=== PATIENT | male | born 1995 | race Caucasian/White ===

== ENCOUNTER 2017-08-07 10:39 | Emergency (ER) | payer SELFPAY ==
[2017-08-07 11:35] VITALS: BP 135/75
--- NOTE | 2017-08-07 11:39 | UC ---
Hand/Wrist HPI - HPI Summary HPI Summary: 21 y/o WM presents with left hand pain s/p injury about 1 hour ago while at work. He tells me that a box pallet was blown by the wind and landed on his left hand. He is having pain at the middle MCP. Has not taken anything for pain. Denies numbness, tingling, or decreased ROM. - History Of Current Complaint Chief Complaint: UCUpperExtremity Stated Complaint: FINGER/HAND INJURY WC Time Seen by Provider: 08/07/17 11:29 Hx Obtained From: Patient Mechanism Of Injury: Blunt Onset/Duration: Sudden Onset Severity Initially: Moderate Severity Currently: Moderate Pain Intensity: 7 Pain Scale Used: 0-10 Numeric Character Of Pain: Dull, Aching, Stiffness - Allergies/Home Medications Allergies/Adverse Reactions: Allergies Allergy/AdvReac Type Severity Reaction Status Date / Time No Known Allergies Allergy Verified 08/07/17 11:32 Home Medications: Home Medications NK [No Home Medications Reported] 08/07/17 [History Confirmed 08/07/17] PMH/Surg Hx/FS Hx/Imm Hx Previously Healthy: Yes - Surgical History Surgical History: None - Family History Known Family History: Positive: Cardiac Disease, Hypertension - Social History Occupation: Employed Full-time Lives: With Family Alcohol Use: Occasionally Substance Use Type: None Smoking Status (MU): Never Smoked Tobacco Review of Systems Constitutional: Negative Respiratory: Negative Cardiovascular: Negative Neurovascular: Negative Musculoskeletal: Edema - Left middle finger, Other: - Pain left middle finger Neurological: Negative All Other Systems Reviewed And Are Negative: Yes Physical Exam Triage Information Reviewed: Yes Appearance: Well-Appearing, No Pain Distress, Well-Nourished Vital Signs: Initial Vital Signs Temp 98.1 F 08/07/17 11:33 Pulse 57 08/07/17 11:33 Resp 16 08/07/17 11:33 BP 135/75 08/07/17 11:33 Pulse Ox 100 08/07/17 11:33 Vital Signs Reviewed: Yes Respiratory: Positive: Chest non-tender, Lungs clear, Normal breath sounds Cardiovascular: Positive: RRR, No Murmur, Pulses Normal - Left radial and ulnar , Brisk Capillary Refill - Left hand and all fingers Musculoskeletal: Positive: Strength Intact - Left hand and all fingers, ROM Intact - Left hand and all fingers, Edema @ - Mild overlying the left middle MCP , Other: - TTP over middle MCP. No obvious bony deformities. Neurological: Positive: Alert, Other: - Sensations intact left hand and all fingers. Psychological: Positive: Age Appropriate Behavior Hand/Wrist Course/Dx - Course Course Of Treatment: XR: IMPRESSION: NO ACUTE OSSEOUS INJURY. IF SYMPTOMS PERSIST, RECOMMEND REPEAT IMAGING. Hand was RUTH wrapped. Ibuprofen as needed for pain. F/u with ortho if needed. - Differential Dx/Diagnosis Differential Diagnosis/HQI/PQRI: Contusion, Dislocation, Fracture, Sprain, Strain Provider Diagnoses: Left hand contusion Discharge - Discharge Plan Condition: Stable Disposition: HOME Patient Education Materials: Contusion in Adults (ED) Forms: *Work Release Referrals: Sofya Ayers MD [Primary Care Provider] - Kinza Mcclelland MD [Medical Doctor] - If Needed Additional Instructions: If you develop a fever, shortness of breath, chest pain, new or worsening symptoms - please call your PCP or go to the ED. 1) Please keep your hand RUTH wrapped as much as possible, especially if working. 2) May take ibuprofen 600mg every 6-8 hours as needed for pain 3) If symptoms worsen or persist beyond 5 days, please call Orthopedics at the number below for a follow up appointment.
--- NOTE | 2017-08-07 11:54 | RAD ---
HISTORY: Left hand pain, crush injury COMPARISONS: None VIEWS: 4, Frontal, lateral, and oblique views of the left hand FINDINGS: BONE DENSITY: Normal. BONES: There is no displaced fracture. JOINTS: There is no arthropathy. ALIGNMENT: There is no dislocation. SOFT TISSUES: Unremarkable. OTHER FINDINGS: None. IMPRESSION: NO ACUTE OSSEOUS INJURY. IF SYMPTOMS PERSIST, RECOMMEND REPEAT IMAGING.
== END 2017-08-07 12:25 | disposition home or self-care (01) ==
LOC: UCEAST 10:39
DX: S60.222A Contusion of left hand, initial encounter (principal); W20.8XXA Other cause of strike by thrown, projected or falling object, initial encounter; Y92.9 Unspecified place or not applicable
CPT/HCPCS: 99212; G0463